=== PATIENT | female | born 1990 ===

== ENCOUNTER 2017-05-10 19:50 | Emergency (ER) | payer BC, MEDICAID ==
[2017-05-10] MEDS ORDERED: Oseltamivir CAP* 75 MG PO ONE ×2 (20:59→21:00)
--- NOTE | 2017-05-10 21:04 | UC ---
Bessie Dial Thomas, scribed for Cesar Alva MD on 05/10/17 at 2041 . FLU HPI - HPI Summary HPI Summary: The patient is a 27 year old female who presents with multiple symptoms that began two nights ago, including ear pain, fever, headache, productive cough, heavy chest feeling, chest pain that feels like its on fire, and wheezing. She last took Ibuprofen at 5pm today. - History of Current Complaint Chief Complaint: UCGeneralIllness Stated Complaint: sore THROAT Time Seen by Provider: 05/10/17 20:32 Hx Obtained From: Patient Hx Last Menstrual Period: now Onset/Duration: Lasting Days - two days, Still Present Severity Currently: Mild Severity Initially: Mild Associated Signs & Symptoms: Positive: Fever, Cough, Sore Throat, Headache - Allergy/Home Medications Allergies/Adverse Reactions: Allergies Allergy/AdvReac Type Severity Reaction Status Date / Time No Known Allergies Allergy Verified 05/10/17 20:21 PMH/Surg Hx/FS Hx/Imm Hx Previously Healthy: Yes - NEGATIVE: DM, HTN - Surgical History Surgical History: None - Family History Known Family History: Negative: Hypertension, Diabetes - Social History Alcohol Use: Occasionally Substance Use Type: None Smoking Status (MU): Never Smoked Tobacco Review of Systems Constitutional: Fever ENT: Ear Ache Respiratory: Cough - Productive Cardiovascular: Chest Pain Neurological: Headache Is Patient Immunocompromised?: No All Other Systems Reviewed And Are Negative: Yes Physical Exam Triage Information Reviewed: Yes Vital Signs: Initial Vital Signs Temp 97.7 F 05/10/17 20:16 Pulse 81 05/10/17 20:16 Resp 19 05/10/17 20:16 BP 104/64 05/10/17 20:16 Pulse Ox 99 05/10/17 20:16 Vital Signs Reviewed: Yes - Additional Comments General: mildly ill-appearing, no pain distress Skin: warm, color reflects adequate perfusion, dry Head: normal Eyes: EOMI, MARQUEZ ENT: Posterior pharynx with erythema Neck: supple, nontender Respiratory: CTA, breath sounds present Cardiovascular: RRR Abdomen: soft, nontender Bowel: present Musculoskeletal: normal, strength/ROM intact Neurological: normal, sensory/motor intact, A&O x3 Psychological: affect/mood appropriate Flu Course/Dx - Differential Dx/Diagnosis Provider Diagnoses: INFLUENZA Discharge - Discharge Plan Condition: Stable Disposition: HOME Prescriptions: Oseltamivir CAP* [Tamiflu CAP*] 75 mg PO BID #8 cap Patient Education Materials: Influenza (ED) Forms: *Work Release Referrals: Everette Beckham MD [Primary Care Provider] - Additional Instructions: FOLLOW UP WITH YOUR DOCTOR. GET RECHECKED FOR ANY WORSENING OF YOUR CONDITION OR QUESTIONS OR CONCERNS. The documentation as recorded by the Bessie rothman Thomas accurately reflects the service I personally performed and the decisions made by , Cesar Alva MD.
== END 2017-05-10 21:22 | disposition home or self-care (01) ==
LOC: UCEAST 19:50
DX: J11.1 Influenza due to unidentified influenza virus with other respiratory manifestations (principal)
CPT/HCPCS: 87502; 87651; 99202; A9270-GY; G0463

== ENCOUNTER 2018-01-14 21:10 | Emergency (ER) | payer MEDICAID ==
[2018-01-14] MEDS ORDERED: Azithromycin TAB* 250 MG PO ONE (21:40)
[2018-01-14] MEDS ORDERED: Albuterol HFA INHALER* 8 gm MDI INH ONE (21:41)
--- NOTE | 2018-01-14 21:44 | UC ---
Respiratory Complaint HPI - HPI Summary HPI Summary: Worsening sinus pain and congestion ---burning and pain in her chest when she cough - History of Current Complaint Chief Complaint: UCGeneralIllness Stated Complaint: COUGH,UPPER RESP Time Seen by Provider: 01/14/18 21:21 Hx Obtained From: Patient Hx Last Menstrual Period: 12/29/17 ?: No Onset/Duration: Sudden Onset Timing: Constant Pain Intensity: 0 Character: Cough: Nonproductive Associated Signs And Symptoms: Positive: Pleuritic Chest Pain, URI, Nasal Congestion, Sinus Discomfort - Allergies/Home Medications Allergies/Adverse Reactions: Allergies Allergy/AdvReac Type Severity Reaction Status Date / Time No Known Allergies Allergy Verified 01/14/18 21:21 Home Medications: Home Medications Guaifenesin/Dextromethorphan [Robitussin Cough+Chest Co 10-200 mg] 1 cap PO ONCE PRN 01/14/18 [History Confirmed 01/14/18] PMH/Surg Hx/FS Hx/Imm Hx Previously Healthy: Yes - Surgical History Surgical History: None - Family History Known Family History: Negative: Hypertension, Diabetes - Social History Occupation: Employed Full-time Lives: With Family Alcohol Use: Occasionally Substance Use Type: None Smoking Status (MU): Never Smoked Tobacco Review of Systems Constitutional: Chills, Fatigue Skin: Negative Eyes: Negative ENT: Sore Throat, Ear Ache, Nasal Discharge, Sinus Congestion, Sinus Pain/ Tenderness Respiratory: Cough Cardiovascular: Negative Gastrointestinal: Negative Genitourinary: Negative Motor: Negative Neurovascular: Negative Musculoskeletal: Negative Neurological: Negative Psychological: Negative Is Patient Immunocompromised?: No All Other Systems Reviewed And Are Negative: Yes Physical Exam Triage Information Reviewed: Yes Appearance: Well-Appearing, No Pain Distress, Well-Nourished Vital Signs: Initial Vital Signs Temp 99 F 01/14/18 21:25 Pulse 81 01/14/18 21:25 Resp 16 01/14/18 21:25 BP 118/72 01/14/18 21:25 Pulse Ox 98 01/14/18 21:25 Vital Signs Reviewed: Yes Eye Exam: Normal Eyes: Positive: Conjunctiva Clear ENT Exam: Normal ENT: Positive: Normal ENT inspection, Hearing grossly normal, Pharynx normal, Nasal congestion, Sinus tenderness, Uvula midline. Negative: TMs normal, Tonsillar swelling, Trismus, Muffled voice, Hoarse voice, Dental tenderness Dental Exam: Normal Neck exam: Normal Neck: Positive: Supple, Nontender, No Lymphadenopathy Respiratory Exam: Normal Respiratory: Positive: Chest non-tender, Lungs clear, Normal breath sounds, No respiratory distress, No accessory muscle use Cardiovascular Exam: Normal Cardiovascular: Positive: RRR, No Murmur, Pulses Normal, Brisk Capillary Refill Musculoskeletal Exam: Normal Musculoskeletal: Positive: Strength Intact, ROM Intact, No Edema Neurological Exam: Normal Neurological: Positive: Alert, Muscle Tone Normal Psychological Exam: Normal Skin Exam: Normal UC Diagnostic Evaluation - Laboratory O2 Sat by Pulse Oximetry: 98 Respiratory Course/Dx - Course Course Of Treatment: albuterol, flonase, zithromax, increase fluids, ibuprofen / Tylenol for pain follow with pcp prn - Differential Dx/Diagnosis Provider Diagnoses: acute bronchitis, acute sinusitis Discharge - Sign-Out/Discharge Documenting (check all that apply): Patient Departure All imaging exams completed and their final reports reviewed: No Studies - Discharge Plan Condition: Stable Disposition: HOME Prescriptions: Azithromycin TAB* [Zithromax TAB (Z-RHONA) 250 mg #6 tabs] 250 mg PO DAILY #4 tab Fluticasone NASAL SPRAY 50MCG* [Flonase NASAL SPRAY 50MCG*] 2 spray BOTH NARES DAILY #1 btl Patient Education Materials: Sinusitis (ED), Acute Bronchitis (ED), How to Use a Metered-Dose Inhaler and a Spacer (ED), How to Use Nasal Binger (ED) Referrals: RAKESH Rogel [Medical Doctor] - If Needed - Billing Disposition and Condition Condition: STABLE Disposition: Home
== END 2018-01-14 22:08 | disposition home or self-care (01) ==
LOC: UCCORT 21:10
DX: J20.9 Acute bronchitis, unspecified (principal); J01.90 Acute sinusitis, unspecified
CPT/HCPCS: 99212; A9270-GY; G0463

== ENCOUNTER 2019-06-27 19:28 | Emergency (ER) | payer MEDICAID, OTHER ==
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
== END 2019-06-27 21:32 | disposition home or self-care (01) ==
LOC: UCCORT 19:28
DX: R07.9 Chest pain, unspecified (principal); M54.5 Low back pain; Y08.89XA Assault by other specified means, initial encounter; Y92.9 Unspecified place or not applicable
CPT/HCPCS: 71120; 72170; 99212; G0463